=== PATIENT | female | born 1940 | race Caucasian/White ===

== ENCOUNTER 2020-03-20 16:01 | Inpatient (IN) | payer MEDICARE, BC ==
[~2020-03-20] VITALS: Ht 162.6 cm; Wt 106.4 kg
--- NOTE | 2020-03-20 17:00 | NUR ---
Received patient from [facility] per private vehicle. Alert and oriented. Admitted with left knee infection. Ambulatory slowly. Steady on feet. No c/o pain. VSS. CMS intact. Mild edema left knee.
[2020-03-20 17:15] VITALS: BP 162/84; PULSE 76; TEMP 98.7
[2020-03-20] MEDS ORDERED: ASPIRIN 81M81 MG/TA2 PO (17:36)
[2020-03-20] MEDS ORDERED: NEURONTIN300 MG/CAP PO (17:37)
[2020-03-20] MEDS ORDERED: SYNTHROID0.125 MG/T PO (17:38)
[2020-03-20] MEDS ORDERED: TOPROL XL 25MG25 MG PO (17:39)
[2020-03-20] MEDS ORDERED: ACCUPRIL10 M1 (17:42)
--- NOTE | 2020-03-20 19:00 | NUR ---
Hospitalist and orthopedics saw patient.
[2020-03-20] MEDS ORDERED: ACCUPRIL20TAB PO (19:37)
[2020-03-20 19:43] VITALS: BP 167/80; PULSE 83; TEMP 98.6
--- NOTE | 2020-03-20 19:50 | NUR ---
Received report from ERNIE Salgado. Pt currently sitting up in bed and watching television. Pt did request something to eat if she was able. Pt did have orders for a diet so pt was given one of the sandwich boxes on the unit. Pt also wanted water at this time. She has her call light within reach. Her daughter in law also called back with her the correct medication dosage that was needed for her medication list.
--- NOTE | 2020-03-20 22:00 | NUR ---
Pt was able to tolerate diet well. Pt was also able to ambulate to the restroom without a problem. Pt was able to get a shower before bed. Pt has a clean gown on and was offered a snack before bed since she will be NPO after midnight. Pt was given puddding at this time. Pt consent was written and signed and is on the pt chart. Pt has her call light within reach and her bed is in lowest position.
[2020-03-20 23:40] VITALS: BP 152/73; PULSE 80; TEMP 98.1
--- NOTE | 2020-03-21 02:00 | NUR ---
Pt currently sleeping in bed. Pt has had no complaints of pain during the shift. Pt has her call light within reach.
[2020-03-21 04:13] VITALS: BP 144/58; PULSE 76; TEMP 98.6
[2020-03-21 06:48] LABS: ALBUMIN 3.3 gm/dL (3.5-5.0); BILIRUBIN,TOTAL 0.7 mg/dL (0.0-1.0); C-REACTIVE PROTEIN 4.7 mg/dL (0.0-0.9); CALCIUM 8.5 mg/dL (8.4-10.2); CREATININE, serum 0.67 (0.52-1.25); TOTAL PROTEIN 6.3 gm/dL (6.4-8.2)
--- NOTE | 2020-03-21 07:00 | NUR ---
Reported off to ERNIE Caldwell. Pt currently awake in her room brushing her teeth at this time.
[2020-03-21 07:24] LABS: BASO % 0.6 % (0.0-2.0); EOS # 0.3 (0.0-0.7); EOS % 4.8 % (0-4.0); GRAN # 4.6 (1.4-6.5); GRAN % 64.4 % (42.2-75.2); HEMATOCRIT 44.4 % (37.0-47.0); HEMOGLOBIN 14.4 g/dl (12.5-16.0); LYMPH # 1.6 (1.2-3.4); LYMPH % 22.3 % (20.0-51.0); MEAN CELL VOLUME 90 fl (80.0-100.0); MEAN CORPUSCULAR HEMOGLOBIN 29 pg (27.0-31.0); MEAN CORPUSCULAR HGB CONC 32 g/dl (33.0-37.0); MEAN PLATELET VOLUME 9.4 fl (7.4-10.4); MONO # 0.5 (0.1-0.6); MONO % 7.6 % (1.7-9.3); PLATELET COUNT 226 K/mm3 (130-400); RED BLOOD COUNT 4.94 M/mm3 (4.10-5.30)
--- NOTE | 2020-03-21 07:27 | NUR ---
Patient down to MRI
--- NOTE | 2020-03-21 08:00 | NUR ---
Patient independent in room, called out to nurses desk, states that IV pulled out when she was out of bed. Assessment complete. Denies pain or further needs at this time.
[2020-03-21 08:31] VITALS: BP 179/79; PULSE 70; TEMP 98.3
--- NOTE | 2020-03-21 11:25 | NUR ---
Community Nutrition Educator met with patient to discuss discharge planning. Patient lives alone in [place] and sees Dr. Calhoun for primary care. Patient obtains medications from [facility] with no difficulties. Patient does not use any DME and reports she is normally independent with ADLS. Patient states her two sons, Raleigh and Raimundo are her DPOA-HC. Patient lists her daughter in law, Taylor (ph#[phone]) as another point of contact. Patient called her son Raimundo and requested he fax over DPOA docs to SW. Patient is unsure about her discharge plan at this time as she states it will depend on the results of her surgery tomorrow. Patient states she will likely need IV antibiotics and would like to have that set up with [facility] if possible. SW will continue to follow for discharge needs.
--- NOTE | 2020-03-21 11:28 | NUR ---
Contacted PICC team about picc line placement.
[2020-03-21 11:40] VITALS: BP 155/84; PULSE 79; TEMP 97.8
--- NOTE | 2020-03-21 13:52 | NUR ---
Clay Dry Press Operator received DPOA documents and placed them on patient's chart.
[2020-03-21 14:35] LABS: INR 1.1 (0.8-3.0)
[2020-03-21 16:39] VITALS: BP 157/73; PULSE 79; TEMP 98
--- NOTE | 2020-03-21 18:35 | NUR ---
Patient has done well throughout the day, independent in room. Denies pain. IV accidentally pulled out this AM and unable to reinsert after x6 attempts from 3 RN. PICC line placed this afternoon by PICC team and antibiotics administered per orders. Denies further needs at this time. Will report off to director supply chain.
--- NOTE | 2020-03-21 19:16 | NUR ---
Received report from ERNIE Caldwell. Pt currently sleeping in bed and has her call light within reach.
[2020-03-21 20:07] VITALS: BP 148/71; PULSE 77; TEMP 89.9
[2020-03-21 23:47] VITALS: BP 140/60; PULSE 78; TEMP 98.6
[2020-03-22] VITALS (13 sets, daily range): BP systolic 91–158; BP diastolic 56–83; PULSE 62–99; TEMP 97.4–98.5
--- NOTE | 2020-03-22 | NUR ---
Pt has slept well during the night. Pt did have some concerns about her have some loose stools and she was encouraged at this time kristian we have briefs and that we can have in place for this. Pt stated that she felt so much better hearing this. She stated that she took Milk of Mag when she was in the previous hospital and it always does this to her. Pt was also informed that she is also receiving antiobiocs and this could also cause some loose stools. Pt has her call light within reach and her bed is in lowest position.
[2020-03-22 06:46] LABS: CALCIUM 8.5 mg/dL (8.4-10.2); CREATININE, serum 0.63 (0.52-1.25); POTASSIUM 4.3 mmol/L (3.4-5.0)
[2020-03-22 06:48] LABS: BASO # 0.1 (0.0-0.2); BASO % 0.8 % (0.0-2.0); EOS # 0.4 (0.0-0.7); EOS % 5.6 % (0-4.0); GRAN # 3.9 (1.4-6.5); GRAN % 61.6 % (42.2-75.2); HEMATOCRIT 41.1 % (37.0-47.0); HEMOGLOBIN 13.4 g/dl (12.5-16.0); LYMPH # 1.5 (1.2-3.4); LYMPH % 23.7 % (20.0-51.0); MEAN CELL VOLUME 91 fl (80.0-100.0); MEAN CORPUSCULAR HEMOGLOBIN 30 pg (27.0-31.0); MEAN CORPUSCULAR HGB CONC 33 g/dl (33.0-37.0); MEAN PLATELET VOLUME 9.4 fl (7.4-10.4); MONO # 0.5 (0.1-0.6); MONO % 7.8 % (1.7-9.3); PLATELET COUNT 218 K/mm3 (130-400); RED BLOOD COUNT 4.53 M/mm3 (4.10-5.30); REDCELL DISTRIBUTION WIDTH-CV 13.1 % (11.5-14.5)
--- NOTE | 2020-03-22 07:30 | NUR ---
Lying in bed on right side with eyes open. Denies pain at this time. Is aware that she will be having surgery later today. Denies any needs or concerns at this time.
--- NOTE | 2020-03-22 10:06 | NUR ---
Sitting up in bed talking on cell phone with family. Denies any needs at this time.
--- NOTE | 2020-03-22 12:22 | NUR ---
First visit from the product safety technical assistant. No needs right now.
--- NOTE | 2020-03-22 12:29 | NUR ---
Patient to surgery via bed.
[2020-03-22 14:43] LABS: SYNOVIAL FL. MONONUCLEAR 17.4 % (0-75); SYNOVIAL FLUID RBC 3000 /mm3 (0-0); SYNOVIAL FLUID WBC 4042 /mm3 (200-600)
[2020-03-22 14:47] LABS: SYNOVIAL FLUID APPEARANCE CLOUDY; SYNOVIAL FLUID COLOR YELLOW
--- NOTE | 2020-03-22 15:55 | NUR ---
Patient to room from PACU. Denies pain. Dressing to left knee CDI, ice pack is to left knee. Patient not able to move left leg at this time. Explain this is normal and will take a little time to ragain that movement. Patient denies additional needs at this time.
--- NOTE | 2020-03-22 15:57 | NUR ---
Postal Mail Carrier contacted [facility] as patient may require outpatient IV antibiotics. SW was advised she would need to speak with Stacie, who has already left for the day. TONIA faxed referral including Facesheet, H&P, labs, and Infectious Disease notes. TONIA will continue to follow.
--- NOTE | 2020-03-22 16:32 | NUR ---
Lying in bed with eyes open speaking with KWADWO Esquivel. Still unable to move lower left leg or feel toes. Denies pain or needs at this time.
--- NOTE | 2020-03-22 17:15 | NUR ---
Lying in bed with eyes open. Patient says that she is able to feel a "tingling sensation" in her left knee but not able to move her left leg. Some movement in right leg, not much. Dressing to left knee CDI, ice pack is to left knee. Patient denies needs at this time.
--- NOTE | 2020-03-22 21:00 | NUR ---
PT REPORTS FULL SENSATION BACK TO LEGS. ASSISTED TO BATHROOM, VOIDS AND BACK TO BED. RATES PAIN 4/10 AT THIS TIME, DOES NOT WANT ANY PAIN MEDS AT THIS TIME AND WANTS TO TRY TO AVOID NARCOTICS. TAKES SCHEDULED MED AT THIS TIME. IS ALERT AND ORIENTED X4. DRSG INTACT TO LEFT LEG. IVF INFUSING TO RIGHT PICC WITHOUT PROBLEM.
--- NOTE | 2020-03-22 22:41 | NUR ---
PT AWAKE, ASKING FOR OXYCODONE FOR LEFT LEG/KNEE PAIN 04/18. MEDICATED WITH 10MG PO AT THIS TIME. POSITIONED TO HER SIDE WITH KNEE ELEVATED ON PILLOW.
--- NOTE | 2020-03-23 00:17 | NUR ---
PT STILL COMPLAINS OF PAIN TO LEFT KNEE, MEDICATED WITH NORCO 7.5MG 2 TABS NOW AND NEW ICE PACK PLACED ON LEFT KNEE.
[2020-03-23 04:02] VITALS: BP 127/60; PULSE 102; TEMP 98.1
--- NOTE | 2020-03-23 04:30 | NUR ---
ASSISTED PT TO BATHROOM, GAIT STEADY. DENIES NEED FOR PAIN MEDS AT THIS TIME. ICE PACK REFILLED AND PLACED ON LEFT KNEE WHEN PT BACK TO BED. IV ANTIBIOTIC INFUSING WITHOUT PROBLEM.
[2020-03-23 06:15] LABS: HEMATOCRIT 40.8 % (37.0-47.0); HEMOGLOBIN 13.4 g/dl (12.5-16.0); MEAN CELL VOLUME 90 fl (80.0-100.0); MEAN CORPUSCULAR HEMOGLOBIN 30 pg (27.0-31.0); MEAN CORPUSCULAR HGB CONC 33 g/dl (33.0-37.0); PLATELET COUNT 205 K/mm3 (130-400); RED BLOOD COUNT 4.53 M/mm3 (4.10-5.30); REDCELL DISTRIBUTION WIDTH-CV 12.9 % (11.5-14.5)
--- NOTE | 2020-03-23 06:15 | NUR ---
MEDICATED WITH OXYCODONE 10MG PO FOR PAIN TO LEFT KNEE.
[2020-03-23 06:24] LABS: CALCIUM 8.9 mg/dL (8.4-10.2); CREATININE, serum 0.61 (0.52-1.25)
--- NOTE | 2020-03-23 08:00 | NUR ---
Patient in bed resting. Alert and oriented x 3. Assessment complete. Acewrap to LLE is CDI. Denies pain at this time. PICC line to [facility] without complications. Patient up to restroom with standby assist and walker. Denies further needs at this time.
[2020-03-23 08:10] LABS: BAND 9 % (0-10); BASOPHIL 1 % (0-2); LYMPHOCYTE 9 % (20.0-51.0); MYELOCYTE 1 % (0-0); NEUTROPHILS 78 % (42.0-75.2); PLATELET ESTIMATE NORMAL (NORMAL)
[2020-03-23 08:25] VITALS: BP 134/92; PULSE 102; TEMP 98.6
--- NOTE | 2020-03-23 09:30 | NUR ---
Dressing to LLE changed to aquacell dress. [place] intact.
[2020-03-23 11:22] VITALS: BP 144/87; PULSE 90; TEMP 98.3
--- NOTE | 2020-03-23 14:54 | NUR ---
Enterprise Software Developer spoke with Stacie at [facility]. Stacie advised they were likely able to meet patient's need for outpatient IV antibiotics upon discharge. TONIA faxed clinical updates. TONIA collaborated with KWADWO Arreola who advised they were still awaiting final recommendations. TONIA will continue to follow.
[2020-03-23 16:51] VITALS: BP 143/65; PULSE 77; TEMP 97.6
--- NOTE | 2020-03-23 18:42 | NUR ---
Patient has done well throughout the day. Minimal needs. Has requested pain meds for LLE pain. Has been up ambulating in halls and in room. Antibiotics infusing per orders. Denies further needs at this time. Will report off to shift lab technician.
--- NOTE | 2020-03-23 20:00 | NUR ---
UP AND ABOUT INDEPENDENTLY IN ROOM. UP TO BATHROOM WITH WALKER. SEE MAR FOR PAIN GIVEN THIS SHIFT. ANXIOUS AND TALKATIVE. PLEASANT AND COOPERATIVE. CALL LIGHT IN REACH.
[2020-03-23 21:04] VITALS: BP 140/75; PULSE 86; TEMP 98.1
--- NOTE | 2020-03-23 23:00 | NUR ---
PT UPSET. CALL LIGHT WASN'T ANSWERED IN REASONABLE TIME. HAD TO VOID. PT VERY ANXIOUS. PT WAS ASSISTED TO BR WITH WALKER. PT VERY CONCERNED ABOUT PAIN MANAGEMENT. PT RELATES LT KNEE PAIN LEVEL 3-410.SEE MAR GIVEN. PT SITTING UP IN RECLINER DOING EXERCISE. GAVE EMOTIONAL SUPPORT.
[2020-03-24] VITALS (7 sets, daily range): BP systolic 126–136; BP diastolic 59–103; PULSE 78–86; TEMP 97.5–99
[2020-03-24 06:27] LABS: BASO # 0.1 (0.0-0.2); BASO % 0.4 % (0.0-2.0); EOS # 0.2 (0.0-0.7); EOS % 1.4 % (0-4.0); GRAN # 9.1 (1.4-6.5); GRAN % 73.5 % (42.2-75.2); HEMATOCRIT 37.8 % (37.0-47.0); HEMOGLOBIN 12.1 g/dl (12.5-16.0); LYMPH # 2.2 (1.2-3.4); LYMPH % 17.4 % (20.0-51.0); MEAN CELL VOLUME 90 fl (80.0-100.0); MEAN CORPUSCULAR HEMOGLOBIN 29 pg (27.0-31.0); MEAN CORPUSCULAR HGB CONC 32 g/dl (33.0-37.0); MEAN PLATELET VOLUME 9.3 fl (7.4-10.4); MONO # 0.8 (0.1-0.6); MONO % 6.8 % (1.7-9.3); PLATELET COUNT 222 K/mm3 (130-400); RED BLOOD COUNT 4.19 M/mm3 (4.10-5.30); REDCELL DISTRIBUTION WIDTH-CV 13.2 % (11.5-14.5)
[2020-03-24 06:36] LABS: CALCIUM 8.8 mg/dL (8.4-10.2); CREATININE, serum 0.68 (0.52-1.25); POTASSIUM 4.4 mmol/L (3.4-5.0)
--- NOTE | 2020-03-24 08:30 | NUR ---
Patient resting on bedside, alert and oriented, answers questions appropriately. Patient reports that her left knee pain is 'tolerable' at rest, but rates it an 8-9/10 with movement. Patient requests PRN pain medication so she will be able to work with PT today, will administer per order. Discussed pain control medications that are ordered and need to request medication before pain becomes severe. Also discussed possibility for constipation while taking narcotics and contibuting factors of surgery, lack of ambulation, and diet changes in relation to slow bowels. Assured patient that bowel sounds are audible and active in all quadrants, patient reports that she is passing flatus. Patient verbaized understanding, denies further needs at this time, call light within reach.
[2020-03-24] MEDS ORDERED: XARELTO10 MG PO ×2 (12:27→12:36)
[2020-03-24] MEDS ORDERED: VANCO 1.51.5 GM/250 IV (12:34)
[2020-03-24] MEDS ORDERED: MAXIPIME2 GM IV (12:34)
--- NOTE | 2020-03-24 16:28 | NUR ---
Patient Access Specialist collaborated with KWADWO Arreola about prescription for IV antibiotics. TONIA faxed prescription to [facility] and set patient's first infusion appointment for tomorrow, 03/25/20 1900 with Stacie. Patient will discharge tomorrow after receiving 0700 infusion. TONIA set up outpatient PT appointment for 03/28/20 @ 0800. TONIA provided appointment times to [facility]. TONIA met with patient who is agreeable to this plan. Patient states tomorrow and through the weekend, her family will provide transportation to appointments. During the week, patient will use public transportation for morning appointments and family will transport for evening appointments. TONIA will continue to follow.
--- NOTE | 2020-03-24 18:25 | NUR ---
Patient resting in bed finishing dinner at this time. Patient remains alert and oriented. Patient asks questions about discharge tomorrow, outpatient IV antibiotic therapy, and PICC line, answered questions as able. Patient has declined pain medication this afternoon, but states that she will likely nory it at HS; will pass to oncoming nurse. Patient denies further needs at this time, call light within reach.
--- NOTE | 2020-03-24 21:00 | NUR ---
Pt ambulates in hallway with staff and walker. Does well. Back to bed. Has Aqucel drsg to left knee, old drainage noted. RT PICC intact. Is alert and oriented x4. Denies needs at this time.
--- NOTE | 2020-03-24 22:35 | NUR ---
Pt takes HS meds including [place] 7.5 (2) tabs po at this time. Also given dose of MOM with Prune juice for constipation.
[2020-03-25 03:48] VITALS: BP 126/53; PULSE 77; TEMP 89.7
[2020-03-25 06:14] LABS: BASO # 0.1 (0.0-0.2); BASO % 0.6 % (0.0-2.0); EOS # 0.4 (0.0-0.7); EOS % 4.5 % (0-4.0); GRAN # 6.1 (1.4-6.5); GRAN % 63.1 % (42.2-75.2); HEMATOCRIT 37.7 % (37.0-47.0); LYMPH # 2.3 (1.2-3.4); LYMPH % 23.3 % (20.0-51.0); MEAN CELL VOLUME 91 fl (80.0-100.0); MEAN CORPUSCULAR HEMOGLOBIN 29 pg (27.0-31.0); MEAN CORPUSCULAR HGB CONC 32 g/dl (33.0-37.0); MEAN PLATELET VOLUME 9.3 fl (7.4-10.4); MONO # 0.8 (0.1-0.6); MONO % 8.1 % (1.7-9.3); PLATELET COUNT 233 K/mm3 (130-400); RED BLOOD COUNT 4.13 M/mm3 (4.10-5.30); REDCELL DISTRIBUTION WIDTH-CV 13.3 % (11.5-14.5)
[2020-03-25 06:22] LABS: CALCIUM 8.9 mg/dL (8.4-10.2); CREATININE, serum 0.69 (0.52-1.25); POTASSIUM 4.4 mmol/L (3.4-5.0)
--- NOTE | 2020-03-25 06:36 | NUR ---
MEDICATED WITH NORCO 7.5/325MG (2) TABS PO AT THIS TIME FOR PAIN 8/10 WITH ACTIVITY.
[2020-03-25 06:52] VITALS: BP 146/59; PULSE 77; TEMP 98.1
--- NOTE | 2020-03-25 08:00 | NUR ---
Patient resting in bed eating breakfast at this time. Patient is alert and oriented, answers questions appropriately. Patient up to bathroom with SBA with walker, patient is moving well. Patient denies pain or further needs at this time, call light within reach.
[2020-03-25 11:03] VITALS: BP 120/50; PULSE 84; TEMP 98.2
--- NOTE | 2020-03-25 13:20 | NUR ---
Discharge teaching completed. Discussed follow up appointments, out patient IV antibiotic appointments at [facility], discharge instructions including changing aquacel POD#7. Discussed discharge medications and OTC stool softners to manage opioid associated constipation. Patient verbalized understanding. Discharged with PICC line per order. Patient denied questions or needs. Patient escorted to ED entrance where she entered a private vehicle.
--- NOTE | 2020-03-25 15:02 | NUR ---
Patient to discharge today. TONIA faxed discharge orders, including outpatient PT orders to [facility]. TONIA contacted Stacie at [facility] and confirmed everything was received. Patient to have first infusion at [facility]. No additional needs at this time.
== END 2020-03-25 13:20 | disposition home or self-care (01) | DRG 486 ==
LOC: SURG 16:01
PROVIDERS: Hospitalist; Orthopaedic Surgery; Physician Assistant; ADMIT Internal Medicine
PROC: 0SUW09Z Supplement Left Knee Joint, Tibial Surface with Liner, Open Approach (ICD-10-PCS; 2020-03-22)
PROC: 0SPD09Z Removal of Liner from Left Knee Joint, Open Approach (ICD-10-PCS; principal; 2020-03-22 13:00)
DX: T84.54XA Infection and inflammatory reaction due to internal left knee prosthesis, initial encounter (principal); B02.29 Other postherpetic nervous system involvement; F41.1 Generalized anxiety disorder; M19.90 Unspecified osteoarthritis, unspecified site; E05.00 Thyrotoxicosis with diffuse goiter without thyrotoxic crisis or storm; I10 Essential (primary) hypertension; E78.5 Hyperlipidemia, unspecified; E03.9 Hypothyroidism, unspecified; K52.9 Noninfective gastroenteritis and colitis, unspecified
CPT/HCPCS: 99223-AI; 99231-AI; 99232-AI; 99239; A9284; C1751; C1776; J0690; J0692; J1100; J2250; J2405; J2704; J3010; J3370; J7030; J7050